=== PATIENT | male | born 1980 | race Caucasian/White ===

== ENCOUNTER 2023-01-09 10:03 | Outpatient (CLI) | payer BC | END 2023-01-09 10:04 | disposition home or self-care (01) | LOC: CSHMRI 10:03 | PROVIDERS: ATTEND Orthopaedic Surgery | DX: M24.811 Other specific joint derangements of right shoulder, not elsewhere classified (principal); S43.491A Other sprain of right shoulder joint, initial encounter; M67.411 Ganglion, right shoulder; M89.511 Osteolysis, right shoulder; M75.81 Other shoulder lesions, right shoulder ==